=== PATIENT | female | born 1945 | race Caucasian/White ===

== ENCOUNTER → 2016-03-28 | Outpatient (CLI) | payer OTHER ==
--- NOTE | 2016-03-28 11:46 | DX ---
DEXA Bone Mineral Densitometry Clinical Indications: Postmenopausal, family history of osteoporosis, oophorectomy, thyroid replacem ent, screening for osteoporosis Comparison: November 03, 2011 (low bone density) Technique: Bone Mineral Densitometry (BMD) by Dual Energy X-Ray Absorptiometry (DEXA) was performed utilizing the [employer] scanner. The lumbar spine was evaluated in the AP projection. The bilat eral hips and forearm were evaluated in the AP projection. Vertebral fracture assessment was also pe rformed. AP Lumbar Spine: The L1, L2, L3 and L4 vertebral bodies were evaluated. BMD: 1.164 gm/cm2 T-score: - 0.2 SD Z-score: 1.1 SD No significant change AP Left Hip: Neck BMD: 0.841 gm/cm2 T-score: -1.4 SD Z-score: 0.1 SD No significant change in total BMD AP Right Hip: Neck BMD: 0.889 gm/cm2 T-score: -1.1 SD Z-score: 0.4 SD No significant change in total BMD AP Left Forearm, 02/28: BMD: 0.821 gm/cm2 T-score: 0.6 SD Z-score: 1.1 SD No significant change. Vertebral Fracture Assessment: No significant fracture deformity. No prevertebral aortic calcificati on, significant marginal bone spurring, facet arthrosis, or intrinsic vertebral body sclerosis that would effect the accuracy of the lumbar spine BMD measurement. Conclusion: Considering the lowest measured site, the patient has low bone density. The ten year FRAX risk for any major osteoporotic fracture , which excludes the risk for a wrist frac ture, is 15.2% and for a hip fracture is 2.5%. Any bone loss in this patient is probably related to aging or estrogen deficiency. To prevent osteoporosis and to promote the patient's bone density, the following recommendations shou ld be considered: 1. Pursue a regular regimen of weightbearing and muscle strengthening exercises in order to reduce t he risk of falls and fractures (as tolerated by the patient's general medical condition). 2. Ensure that daily dietary calcium uptake is maximized. 3. Consider checking the serum vitamin D level. Ensure that intake of vitamin D is 800 IU per day (f or ages 70 and older). 4. Consider follow-up DEXA scan in 3-4 years to reassess the rate of bone loss in this patient.
== END ==
LOC: FIMAGING 09:54
PROVIDERS: ATTEND Nurse Practitioner
DX: Z13.820 Encounter for screening for osteoporosis (principal); M85.80 Other specified disorders of bone density and structure, unspecified site; Z82.62 Family history of osteoporosis

== ENCOUNTER → 2016-10-05 | Outpatient (CLI) | payer OTHER | LOC: CIMAGING 09:38 | PROVIDERS: ATTEND Nurse Practitioner | DX: Z12.31 Encounter for screening mammogram for malignant neoplasm of breast (principal) | CPT/HCPCS: G0202 ==

== ENCOUNTER → 2018-08-06 | Outpatient (CLI) | payer OTHER | LOC: EMCIMAGING 09:18 ==